=== PATIENT | female | born 1960 | race Caucasian/White ===

== ENCOUNTER 2020-04-01 10:05 | Outpatient (CLI) | payer OTHER, SELFPAY ==
--- NOTE | ~2020-04-01 | XR_ITS ---
EXAMINATION: XR knee LT 3V DATE: 04/01/2020 10:29 INDICATION: Left knee pain. TECHNIQUE: 3 views of left knee were obtained. COMPARISON: None. FINDINGS: Bone alignment is normal. No fracture. There is mild tricompartmental osteoarthritis. There is a small knee joint effusion. IMPRESSION: 1. Mild left knee osteoarthritis. 2. Small left knee joint effusion. Reviewed, dictated and finalized at location A. [employer]
== END 2020-04-01 10:06 | disposition home or self-care (01) ==
PROVIDERS: PCP Family Medicine; Visit Provider Nurse Practitioner Family
DX: M25.562 Pain in left knee (principal); M17.12 Unilateral primary osteoarthritis, left knee; M25.462 Effusion, left knee
CPT/HCPCS: 73562

== ENCOUNTER → 2020-11-01 12:39 | Outpatient (CLI) | payer OTHER, SELFPAY ==
--- NOTE | ~2020-11-01 | MM_ITS ---
EXAMINATION: MM screening nils BI w jacqueline HISTORY: Screening TECHNIQUE: Craniocaudal and mediolateral oblique 3-D tomosynthesis images were obtained and synthetic 2-D images were generated. CAD analysis was submitted and interpreted. COMPARISON: No prior mammogram is available for comparison at this institution. BREAST PARENCHYMAL COMPOSITION: There are scattered areas of fibroglandular density. FINDINGS: There is a mass in the upper outer quadrant of the right breast, middle third. There are no suspicious masses, calcifications or architectural distortion in the left breast to suggest malignan cy. IMPRESSION: 1. Right breast mass, upper outer quadrant. 2. Additional mammographic views and possible breast ultrasound are recommended. BI-RADS Category 0: Incomplete: Needs additional imaging evaluation. Reviewed, dictated and finalized at location A. IMPRESSION: 1. Right breast mass, upper outer quadrant. 2. Additional mammographic views and possible breast ultrasound are recommended . BI-RADS Category 0: Incomplete: Needs additional imaging evaluation.
== END ==
PROVIDERS: Visit Provider Obstetrics & Gynecology
DX: Z12.31 Encounter for screening mammogram for malignant neoplasm of breast (principal); R92.8 Other abnormal and inconclusive findings on diagnostic imaging of breast
CPT/HCPCS: 77063; 77067

== ENCOUNTER 2020-11-22 12:43 | Outpatient (CLI) | payer OTHER, SELFPAY ==
--- NOTE | ~2020-11-22 | MMUS_ITS ---
EXAMINATION: MM diagnostic nils RT w jacqueline, US breast RT limited HISTORY: Follow-up right breast mass TECHNIQUE: Additional 3-D tomosynthesis images of the right breast were performed and synthetic 2-D i mages were generated. CAD analysis was submitted and interpreted. High resolution Limited right breas t ultrasound was performed. COMPARISON: 11/01/2020 BREAST PARENCHYMAL COMPOSITION: Breast composed of scattered areas of fibroglandular density. FINDINGS: MAMMOGRAPHIC FINDINGS: There is a persistent mass in the mid lateral aspect of the right breast with central lucency on spot views. No suspicious calcifications or architectural distortion. ULTRASOUND: Limited right breast ultrasound: At 9:00, 4 cm from the nipple, there is a 4 mm cyst corresponding to the mammographic finding. No suspicious masses to suggest malignancy. IMPRESSION: 1. No evidence for malignancy in the right breast. Benign cyst. 2. Routine yearly screening mammogram and regular clinical breast examination are recommended. BI-RADS Category 2: Benign finding(s). Reviewed, dictated and finalized at location A. IMPRESSION: 1. No evidence for malignancy in the right breast. Benign cyst. 2. Routine yearly screening mammogram and regular clinical breast examination a re recommended. BI-RADS Category 2: Benign finding(s).
== END 2020-11-22 12:44 | disposition home or self-care (01) ==
LOC: ANHIMG 12:46
PROVIDERS: PCP Family Medicine; Visit Provider Obstetrics & Gynecology
DX: N60.01 Solitary cyst of right breast (principal)
CPT/HCPCS: 76642; 77061; 77065; G0279

== ENCOUNTER → 2021-12-22 10:35 | Outpatient (CLI) | payer OTHER, SELFPAY ==
--- NOTE | ~2021-12-22 | MM_ITS ---
EXAMINATION: MM screening nils BI w jacqueline HISTORY: Screening TECHNIQUE: Craniocaudal and mediolateral oblique 3-D tomosynthesis images were obtained and synthetic 2-D images were generated. CAD analysis was submitted and interpreted. COMPARISON: Comparison to multiple prior studies sequentially, with oldest reviewed study dated 03/22. BREAST PARENCHYMAL COMPOSITION: The breasts are almost entirely fatty. FINDINGS: There is no evidence of suspicious mass, calcification, or architectural distortion to sugg est malignancy in either breast. There has been no suspicious interval change. IMPRESSION: 1. No mammographic evidence of malignancy. 2. Recommend routine screening mammography in one year. BI-RADS Category 1: Negative Reviewed, dictated and finalized at location A.
== END ==
PROVIDERS: PCP Family Medicine; Visit Provider Obstetrics & Gynecology
DX: Z12.31 Encounter for screening mammogram for malignant neoplasm of breast (principal)
CPT/HCPCS: 77063; 77067

== ENCOUNTER → 2022-03-02 12:03 | Outpatient (CLI) | payer OTHER, SELFPAY ==
--- NOTE | ~2022-03-02 | DEXA_ITS ---
Bone Density Report Name: ALISON WORKMAN Age: 61 Sex: Female Ethnicity: White Date of : 1960 Indication: postmenopausal; screening for osteoporosis; Referring Provider: MARKO FRANKLIN Study: Bone densitometry was performed. Exam Date: March 02, 2022 Accession number: [id number] Bone Density: Region BMD T-score Z-score Classification AP Spine (L1-L4) 1.392 3.1 4.7 Normal Femoral Neck (Left) 0.831 -0.2 1.2 Normal Total Hip (Left) 1.114 1.4 2.4 Normal Femoral Neck (Right) 0.727 -1.1 0.3 Osteopenia Total Hip (Right) 1.047 0.9 1.9 Normal Total Hip Mean 1.081 1.2 2.2 Normal World Health Organization criteria for BMD impression classify patients as: Normal (T-score at or above -1.0), Osteopenia (T-score between -1.0 and -2.5), or Osteoporosis (T-score at or below -2.5). 10-year Fracture Risk(1): Major Osteoporotic Fracture 6.9% Hip Fracture 0.4% Reported Risk Factors: [place] (), Neck BMD=0.727, BMI=36.8 (1) FRAX(R) Version 3.08. Fracture probability calculated for an untreated patient. Fracture probability may be lower if the patient has received treatment. Clinical Information Provided by Patient: Patient maximum height was 67 Menopause Age: 42 Drinks caffeinated beverages Onset of menses at age 12 Number of children 2 Impression: The patient has low bone mass, based on the Right Femoral Neck T-score. The patient has an estimated ten-year risk of hip fracture of 0.4% and an estimated ten-year risk of major fracture of 6.9%, based on the WHO FRAX algorithm. Discussion: BONE DENSITY IS LOW AT ONE OR MORE SKELETAL SITES. This patient's lowest T-score is low at one or more skeletal sites. It meets the World Health Organization's (WHO) criteria for ?low bone mass? (T-score between -1.0 and -2.5). The patient's 10-year risk of fracture as calculated by FRAX is less than the threshold where pharmacological therapy is recommended by the National Osteoporosis Foundation (NOF). However, all treatment decisions require clinical judgment and consideration of individual patient factors, including patient preferences, comorbidities, previous drug use, risk factors not captured in the FRAX model (e.g., frailty, falls, vitamin D deficiency, increased bone turnover, interval significant decline in bone density) and possible under or overestimation of fracture risk by FRAX. The patient should follow a healthful lifestyle (good nutrition with adequate calcium and vitamin D, and appropriate weight-bearing exercise). Follow-Up: Consider repeating this study in 2 to 3 years to reassess this patient's status, or sooner if there is some new clinical indication. Reported by: CATE on 03/02/2022 12:33:00 PM. Reviewed, dictated and finalized
== END ==
PROVIDERS: PCP Family Medicine; Visit Provider Obstetrics & Gynecology
DX: Z78.0 Asymptomatic menopausal state (principal); M85.851 Other specified disorders of bone density and structure, right thigh
CPT/HCPCS: 77080

== ENCOUNTER 2022-12-01 00:33 | Day surgery (SDC) | payer OTHER, SELFPAY ==
[2022-11-27 09:17] VITALS: BMI 36.1
--- NOTE | 2022-11-27 09:27 | PC.NURSE ---
Report to the Outpatient Waiting Room, entrance under the green pavilion located off [facility], at time _0900_ on date _[id number]_. Planned Procedure Time: _1100_. Time changes happen often and if your time is changed the preop area will call you the afternoon before. - You and your visitor will be asked to self-screen and do not enter if you have any COVID symptoms. - A mask is optional within the hospital at this time. Patients may have clear liquids (water, carbonated beverages, clear teas, apple juice) until 3 hours prior to surgery with a maximum of 20 ounces. - No food from midnight until time of surgery Take the following medications with a SIP of water the morning of surgery: ___None DO NOT STOP ANY OF YOUR OTHER PRESCRIPTION MEDICATIONS PRIOR TO SURGERY ?EXCEPT THE FOLLOWING Medications to discontinue per physician All vitamins and supplements. Date to take last [id number] Please no make-up, nail macedonian, hairspray, perfume, deodorant, or body powder the day of surgery. No jewelry (including any body piercings) or valuables the day of surgery, leave them at home. Please take a shower or bath the night before, or the morning of, surgery with an antibacterial soap. Wear comfortable, loose fitting clothing. - Jewelry must be removed prior to entering the operating room. Rings and piercings that are not removed may be cut off. - The hospital will not accept responsibility for valuables. - Please leave all valuables, including medications, at home the day of surgery. If you are going home after surgery, a licensed intermodal truck driver must drive you home. - NO public transportation without another adult if you receive anesthesia. - We recommend that an adult stay with you for 24 hours following discharge. - We also recommend that you do not drive, make important decision, drink alcoholic beverages, or take any drugs that were not prescribed by your health care provider for at least 24 hours after your discharge time. Follow any additional instructions given to you from your surgeon. If you or anyone in your household have experienced Covid symptoms in the past week, please notify your surgeon or the nurse liaison at the phone number below for possible testing. Telephone instructions given to __Patient___and asked if any additional questions and then verbalized understanding. Patient advised to call surgeon office or pre surgery nurse liaison [phone] if any additional questions.
[2022-12-01] VITALS (12 sets, daily range): BP systolic 145–174; BP diastolic 75–90; PULSE 75–101; RESP 11–17; TEMP 36.1–36.4; O2SAT 95–99
--- NOTE | ~2022-12-01 | XR_ITS ---
XR surgery orthopedic 12/01/2022 10:36 Indication: Orthopedic surgery TECHNIQUE: Fluoroscopy used during Orthopedic surgery performed by [Kee Payan JR MD] on 12/01/2022. 4 seconds of fluoroscopy time with 1 fluoroscopic images captured. FINDINGS: Correlate with procedure note. IMPRESSION: Fluoroscopy used during orthopedic surgery. Please refer to procedural report. Reviewed, dictated and finalized at location B. IMPRESSION: Fluoroscopy used during orthopedic surgery. Please refer to procedu ral report.
--- NOTE | 2022-12-01 07:16 | WPDHPUPDATE1 ---
History and Physical Update Update Date/Time: 12/01/22 07:16 History and Physical has been reviewed, including an updated exam of the patient. There are NO changes in the patient's condition. Risks, benefits, and alternatives have been discussed and questions answered. Patient agrees to proceed with procedure.
--- NOTE | 2022-12-01 08:00 | WPDANESEPPF ---
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 Patient Data Age: 62 Gender: F Height: 1.7 m Weight: 104.5 kg Allergies Allergy/AdvReac Type Severity Reaction Status Date / Time povidone-iodine Allergy Severe Swelling Verified 11/27/22 09:13 [From Betadine] Home Medications Medication Instructions Recorded Confirmed Type tumeric 2 tab-cap PO DAILY 11/01/20 12/01/22 History vit 1 tablet PO DAILY 11/01/20 12/01/22 History I-cmhxnkq-[id number]-rutin-[id number] 500 mg-50 mg-25 mg-40 mg tablet (Bioflex) ketoconazole 2 % shampoo 1 applic topical 2XW #120 mL 08/08/22 11/27/22 Rx calcium 600 mg capsule 600 mg PO DAILY 11/27/22 12/01/22 History Patient hx anesthesia problems: none Family hx anesthesia problems: none Results Review: All pre-operative results and documents have been reviewed as part of the pre-operative evaluation. [facility] Past Medical History Medical History Arthritis knee HLD (hyperlipidemia) IFG (impaired fasting glucose) Surgical History Surgical History History of elective section x2 Social History Social History Smoking packs per day: 0.5 Smoking cigarettes per day: 10.0 Years smoked: 1 Smoking pack-years: 0.50 Smoking status: Former smoker Tobacco type: cigarettes Smoking end date: 11/27/16 Alcohol intake: current Alcohol use details: social drinker Substance use: never Living arrangements: with family Occupation/Education: retired Gender identity (if verbalized by the patient): Female Spiritual care concerns: No Anes - Eval Final PreProcedure Day of Procedure 12/01/22 08:00 Patient weight: obese Lungs: clear to auscultation Airway: Mallampati scale class II Neurological: alert and oriented Last oral intake: >/= 8 hours ASA classification: III Emergent: no Anesthetic plan: proceed Anesthesia type and monitoring: general ETT and standard monitoring Results Review: All pre-operative results and documents have been reviewed as part of the pre-operative evaluation. Informed Consent: The patient's anesthetic plan and its attendant risks and benefits were discussed with the patient/family/POA. Questions were solicited and answers provided to the satisfaction of the patient/family/POA.
[2022-12-01] MEDS: LACTATED RINGERS 1,000 ML 30 ML IV CONT ×2 (08:12→10:53)
[2022-12-01] MEDS: ceFAZolin 2 GM/D5W 50 ML 2 GM/50 ML BAG IVPB (09:15)
[2022-12-01] MEDS: LIDOCAINE HCL 2% PF INJ 5 ML VIAL 20 ML INFILTRATE (09:51)
--- NOTE | 2022-12-01 10:39 | W.PM.PROC2 ---
Procedure Note - Detailed Date of Procedure 12/01/22 Pre-op Diagnosis Retrocalcaneal exostosis left foot Post-op Diagnosis Same Procedure Performed Retrocalcaneal exostectomy left foot Surgeon Kee Payan JR, JUDITHM Anesthesia General and Local Indications Pain to the back of the left foot Description of Procedure Under mild sedation, the patient was brought to the operating room, placed on the operating table in the prone position. A pneumatic thigh tourniquet was placed about the patient's left thigh. Following general anesthesia I performed a local anesthetic nerve block with 20cc's of 2% Lidocaine plain and 0.5% Marcaine plain along the common peroneal and sural nerve block. The right foot and distal leg was then scrubbed, prepped, and draped in the usual aseptic manner. An Esmarch bandage was then used to examine the patient's left foot and pneumatic thigh tourniquet was then inflated. Surgery began in the following manner. Attention was directed to the posterior aspect of leg leg where a curvilinear J shaped incision was made lateral to the retrocalcaneal exostosis which was palpable. The incision was made starting 6cm above the insertion of the Achilles and extending 3cm inferior and medial to the calcaneus. The incision was continued deep down through the subcutaneous tissues using sharp and blunt dissection. All bleeders were cauterized as necessary. At this point dissection was continued exposing the the insertional component of the Achilles Tendon. There was noted hypertrophy to the distal tendon. A midsubstance linear Achilles tendon incision was made exposing a large intrasubstance calcified region of bone which was carefully excised and passed to the back table. There was a large posterior and superior exostosis noted which was resected with an osteotome and mallet and feathered smooth with a sagittal saw blade. All rough edges were smoothed with a power nemo and bone rasp. The area was flushed with copious amounts of sterile saline. Fluoroscopy was used to make sure that enough of the retrocalcaneal region was resected approximately 3m from superior to inferior and medial to lateral and 2cm from posterior to anterior. Next, utilizing standard principle and techniques the [employer] SpeedBridge 2.0 system was used to reattach the debulked Achilles tendon to the posterior calcaneus. Comparable tension to the contralateral foot was maintained. Adequate stable reattachment was noted. I flushed the wound site with copious amounts of sterile saline. Next, the paratenon and overlying subcutaneous tissue was reapproximated with 4-0 Vicryl and 4-0 Vicryl correspondingly. Next, the skin was reapproximated and coapted with 4-0 Monocryl in running subcuticular suture fashion technique. Upon completion of the procedure, the incision was dressed with Adaptic, 4 x 4's, Kerlix, and Hollis Wrap. The pneumatic thigh tourniquet was then deflated and a prompt hyperemic response noted to all digits of the left foot. A posterior splint was then applied. The patient did very well with the procedure and the anesthesia. She was transferred to the recovery room with vital signs stable and vascular status intact to all toes of the left foot. Following a period of postoperative monitoring, the patient will be discharged home on the following written and oral postoperative instructions: 1. Keep the dressing clean, dry, and intact. Use a cast protector bag with showers. 2. The patient to be strictly nonweightbearing with a knee scooter. 3. The patient should ice and elevate the left foot when at rest. 4. The patient to contact Dr. Payan for all postop care and if any problems arise. 5. Prescriptions were written for Percocet 5/325 dispensed 40 to be taken 1 p.o. q.4 to 6 hours as needed for severe pain. Implants [employer] SpeedBridge 2.0 system Estimated Blood Loss 1 Drains No Packing No Pathology None sent Complications No immediate complic
[2022-12-01] MEDS: fentaNYL CITRATE INJ (*CRX) 100 MCG/2 ML VIAL 25 MCG IV PUSH ×5 (11:00→11:45)
[2022-12-01] MEDS: ONDANSETRON INJ 4 MG/2 ML VIAL IV PUSH (11:30)
[2022-12-01] MEDS: SCOPOLAMINE 1.5 MG PATCH TRANSDERM (12:11)
== END 2022-12-01 14:10 | disposition home or self-care (01) ==
PROVIDERS: PCP Family Medicine; Visit Provider Podiatrist Foot & Ankle Surgery
PROC: (CPT 28119; principal; 2022-12-01 09:30)
DX: M77.32 Calcaneal spur, left foot (principal); M76.62 Achilles tendinitis, left leg; M67.874 Other specified disorders of tendon, left ankle and foot; E78.5 Hyperlipidemia, unspecified; Z87.891 Personal history of nicotine dependence; E66.9 Obesity, unspecified; Z68.38 Body mass index [BMI] 38.0-38.9, adult
CPT/HCPCS: 28119; 99199; A9270; J0690; J1100; J1170; J2250; J2405; J2704; J3010; J7120

== ENCOUNTER → 2023-03-21 10:29 | Outpatient (CLI) | payer OTHER, SELFPAY ==
--- NOTE | ~2023-03-21 | MM_ITS ---
EXAMINATION: MM screening nils BI w jacqueline HISTORY: Screening TECHNIQUE: Craniocaudal and mediolateral oblique 3-D tomosynthesis images were obtained and synthetic 2-D images were generated. CAD analysis was submitted and interpreted. COMPARISON: Comparison to multiple prior studies sequentially, with oldest reviewed study dated 03/22. BREAST PARENCHYMAL COMPOSITION: There are scattered areas of fibroglandular density. FINDINGS: There is no evidence of suspicious mass, calcification, or architectural distortion to sugg est malignancy in either breast. There has been no suspicious interval change. IMPRESSION: 1. No mammographic evidence of malignancy. 2. Recommend routine screening mammography in one year. BI-RADS Category 1: Negative Reviewed, dictated and finalized at location A. [employer]
== END ==
PROVIDERS: PCP Family Medicine; Visit Provider Registered Nurse
DX: Z12.31 Encounter for screening mammogram for malignant neoplasm of breast (principal)
CPT/HCPCS: 77063; 77067

== ENCOUNTER 2023-12-19 01:26 | Day surgery (SDC) | payer OTHER, SELFPAY ==
[2023-11-28 15:51] VITALS: BMI 36.2
[2023-12-19 06:46] VITALS: BP 145/92; PULSE 85; RESP 18; TEMP 36.6; O2SAT 99; BMI 37.0
[2023-12-19] MEDS: LACTATED RINGERS 1,000 ML 150 ML IV CONT (07:12)
--- NOTE | 2023-12-19 07:56 | WPDANESEPPF ---
Anes - Initial Pre Proc Eval Procedure: Operation Date: 12/19/23 08:00 Proposed Procedures p Colonoscopy - Ron Denson MD Date/Time: 12/19/23 07:56 Surgeon: Ron Denson MD Pre Op Diagnosis: hx of colon polyps Patient Data Age: 63 Gender: F Height: 1.7 m Weight: 107.2 kg Last Vital Signs Temp 98 F 12/19/23 06:46 Pulse 85 12/19/23 06:46 Resp 18 12/19/23 06:46 BP 145/92 H 12/19/23 06:46 Pulse Ox 99 12/19/23 06:46 O2 Del Method Room Air 12/19/23 06:46 Allergies Allergy/AdvReac Type Severity Reaction Status Date / Time povidone-iodine Allergy Severe Swelling Verified 12/19/23 06:45 [From Betadine] Home Medications Medication Instructions Recorded Confirmed Type tumeric 2 tab-cap PO DAILY 11/01/20 12/19/23 History vit 1 tablet PO DAILY 11/01/20 12/19/23 History B-pthxsvr-yolaiybos-[id number] 500 mg-50 mg-25 mg-40 mg tablet (Bioflex) calcium 600 mg capsule 600 mg PO DAILY 11/27/22 12/19/23 History Patient hx anesthesia problems: none Family hx anesthesia problems: none Results Review: All pre-operative results and documents have been reviewed as part of the pre-operative evaluation. [facility] Past Medical History Medical History Arthritis knee HLD (hyperlipidemia) IFG (impaired fasting glucose) Surgical History Surgical History History of Achilles tendon repair History of elective section x2 Social History Social History Smoking packs per day: 0.5 Smoking cigarettes per day: 10.0 Years smoked: 1 Smoking pack-years: 0.50 Smoking status: Former smoker Tobacco type: cigarettes Smoking end date: 11/27/16 Alcohol intake: current Alcohol use details: social drinker Substance use: never Substance use type: does not use Lack of Transportation: No Lack of Food: Never True Current Housing: I Have Housing Concerned About Future Housing: No Difficulty Paying Gas/Electric Bills: No Difficulty Paying for Meds: No Currently Unemployed: No Education: High School Diploma/GED Difficulty w/ Childcare or Family Care: No Living arrangements: with family Occupation/Education: retired Gender identity (if verbalized by the patient): Female Spiritual care concerns: No Anes - Eval Final PreProcedure Day of Procedure 12/19/23 07:56 Patient weight: obese Heart: regular rate and rhythm Lungs: clear to auscultation Airway: Mallampati scale class II Neurological: alert and oriented Last oral intake: >/= 8 hours ASA classification: II Emergent: no Anesthetic plan: proceed Anesthesia type and monitoring: general GIVS and standard monitoring Results Review: All pre-operative results and documents have been reviewed as part of the pre-operative evaluation. Informed Consent: The patient's anesthetic plan and its attendant risks and benefits were discussed with the patient/family/POA. Questions were solicited and answers provided to the satisfaction of the patient/family/POA.
--- NOTE | 2023-12-19 08:07 | PM.IMHP ---
H&P: HPI History of Present Illness Date/Time: 12/19/23 08:07 Chief Complaint: History of colonic polyps. Narrative: The patient is here for her surveillance colonoscopy. Review of Systems Review of Systems: All systems reviewed & are unremarkable except as noted in HPI and below PMFSH Past Medical History Medical History Arthritis knee HLD (hyperlipidemia) IFG (impaired fasting glucose) Surgical History Surgical History History of Achilles tendon repair History of elective section x2 Social History Social History Smoking packs per day: 0.5 Smoking cigarettes per day: 10.0 Years smoked: 1 Smoking pack-years: 0.50 Smoking status: Former smoker Tobacco type: cigarettes Smoking end date: 11/27/16 Alcohol intake: current Alcohol use details: social drinker Substance use: never Substance use type: does not use Lack of Transportation: No Lack of Food: Never True Current Housing: I Have Housing Concerned About Future Housing: No Difficulty Paying Gas/Electric Bills: No Difficulty Paying for Meds: No Currently Unemployed: No Education: High School Diploma/GED Difficulty w/ Childcare or Family Care: No Living arrangements: with family Occupation/Education: retired Gender identity (if verbalized by the patient): Female Spiritual care concerns: No Meds Home Medications and Allergies Home Medications Medication Instructions Recorded Confirmed Type tumeric 2 tab-cap PO DAILY 11/01/20 12/19/23 History vit 1 tablet PO DAILY 11/01/20 12/19/23 History I-nfopdtl-gvngtrvrb-rutin-[id number] 500 mg-50 mg-25 mg-40 mg tablet (Bioflex) calcium 600 mg capsule 600 mg PO DAILY 11/27/22 12/19/23 History Allergies Allergy/AdvReac Type Severity Reaction Status Date / Time povidone-iodine Allergy Severe Swelling Verified 12/19/23 06:45 [From Betadine] Vital Signs Vital Signs - 24 hr 12/19/23 06:46 Temperature 98 F Pulse Rate 85 Respiratory Rate 18 Blood Pressure 145/92 H Pulse Oximetry 99 Oxygen Delivery Room Air Assessment and Plan Assessment and plan (1) History of colonic polyps: Code(s): Z86.0100 - Personal history of colon polyps, unspecified Status: Acute Assessment and Plan: Patient deemed a good candidate for colonoscopy. Will proceed.
[2023-12-19 08:30] VITALS: BP 120/92; PULSE 71; RESP 18; O2SAT 99
--- NOTE | 2023-12-19 08:30 | P.HP_ITS ---
H&P: HPI History of Present Illness Date/Time: 12/19/23 08:30 Chief Complaint: routine [facility] Past Medical History Medical History Arthritis knee HLD (hyperlipidemia) IFG (impaired fasting glucose) Surgical History Surgical History History of Achilles tendon repair History of elective section x2 Social History Social History Smoking packs per day: 0.5 Smoking cigarettes per day: 10.0 Years smoked: 1 Smoking pack-years: 0.50 Smoking status: Former smoker Tobacco type: cigarettes Smoking end date: 11/27/16 Alcohol intake: current Alcohol use details: social drinker Substance use: never Substance use type: does not use Lack of Transportation: No Lack of Food: Never True Current Housing: I Have Housing Concerned About Future Housing: No Difficulty Paying Gas/Electric Bills: No Difficulty Paying for Meds: No Currently Unemployed: No Education: High School Diploma/GED Difficulty w/ Childcare or Family Care: No Living arrangements: with family Occupation/Education: retired Gender identity (if verbalized by the patient): Female Spiritual care concerns: No Meds Home Medications and Allergies Home Medications Medication Instructions Recorded Confirmed Type tumeric 2 tab-cap PO DAILY 11/01/20 12/19/23 History vit 1 tablet PO DAILY 11/01/20 12/19/23 History [id number] 500 mg-50 mg-25 mg-40 mg tablet (Bioflex) calcium 600 mg capsule 600 mg PO DAILY 11/27/22 12/19/23 History Allergies Allergy/AdvReac Type Severity Reaction Status Date / Time povidone-iodine Allergy Severe Swelling Verified 12/19/23 06:45 [From Betadine] Vital Signs Vital Signs - 24 hr 12/19/23 06:46 Temperature 98 F Pulse Rate 85 Respiratory Rate 18 Blood Pressure 145/92 H Pulse Oximetry 99 Oxygen Delivery Room Air
[2023-12-19 08:40] VITALS: BP 140/81; PULSE 77; RESP 15; O2SAT 99
[2023-12-19 08:50] VITALS: BP 150/84; PULSE 73; RESP 21; O2SAT 99
== END 2023-12-19 08:57 | disposition home or self-care (01) ==
PROVIDERS: PCP Family Medicine; Referring Provider Physician Assistant; Visit Provider Internal Medicine Gastroenterology
PROC: 0DJD8ZZ Inspection of Lower Intestinal Tract, Via Natural or Artificial Opening Endoscopic (ICD-10-PCS; CPT 45378; principal; 2023-12-19 08:00)
DX: Z12.11 Encounter for screening for malignant neoplasm of colon (principal); E78.5 Hyperlipidemia, unspecified; E66.9 Obesity, unspecified; Z68.37 Body mass index [BMI] 37.0-37.9, adult; Z98.890 Other specified postprocedural states; Z87.891 Personal history of nicotine dependence; Z86.0100 Personal history of colon polyps, unspecified
CPT/HCPCS: 45378; J2003; J2704; J7120

== ENCOUNTER 2024-04-08 14:32 | Outpatient (CLI) | payer OTHER, SELFPAY ==
--- NOTE | ~2024-04-08 | MM_ITS ---
EXAMINATION: MM screening nils BI w jacqueline HISTORY: Screening TECHNIQUE: Craniocaudal and mediolateral oblique 3-D tomosynthesis images were obtained and synthetic 2-D images were generated. CAD analysis was submitted and interpreted. COMPARISON: Comparison to multiple prior studies sequentially, with oldest reviewed study dated 03/22. BREAST PARENCHYMAL COMPOSITION: Not dense: There are scattered areas of fibroglandular density. FINDINGS: There is no evidence of suspicious mass, calcification, or architectural distortion to sugg est malignancy in either breast. There has been no suspicious interval change. IMPRESSION: 1. No mammographic evidence of malignancy. 2. Recommend routine screening mammography in one year. BI-RADS Category 1: Negative Reviewed, dictated and finalized at location B. ETARY RECEPTIONIST
== END 2024-04-08 14:33 | disposition home or self-care (01) ==
LOC: MICIMG 14:33
PROVIDERS: PCP Family Medicine; Visit Provider Family Medicine
DX: Z12.31 Encounter for screening mammogram for malignant neoplasm of breast (principal)
CPT/HCPCS: 77063; 77067

== ENCOUNTER 2024-11-14 09:57 | Outpatient (CLI) | payer OTHER, SELFPAY ==
[2024-11-14 10:53] LABS: Hematocrit 41.6 % (37.0-47.0); Hemoglobin 13.7 g/dL (12.0-15.0); Mean Corpuscular HGB Conc 32.9 g/dl (32-36); Mean Corpuscular Hemoglobin 30.4 pg (26-34); Mean Corpuscular Volume 92.2 fl (80-100); Platelet Count Result 248 k/mm3 (150-375); Red Blood Count 4.51 M/mm3 (4.2-5.4); White Blood Count 4.7 K/mm3 (4.5-10.0)
[2024-11-14 11:06] LABS: Hemoglobin A1C 6.0 % (<5.7)
[2024-11-14 11:13] LABS: Alanine Aminotransferase 16 U/L (6-35); Albumin Level 4.5 g/dL (3.5-5.1); Alkaline Phosphatase 103 U/L (38-126); Anion Gap 9 mmol/L (4-12); Aspartate Amino Transferase 32 U/L (14-36); Bilirubin,Total 0.6 mg/dL (0.2-1.3); Blood Urea Nitrogen 15 mg/dL (7-17); Calcium 9.6 mg/dL (8.4-10.2); Carbon Dioxide 26 mmol/L (22-30); Chloride 103 mmol/L (98-107); Cholesterol 244 mg/dL (0-200); Estimated Glomerular Filt Rate > 60; Glucose 99 mg/dL (65-110); HDL Direct 65 mg/dL; Potassium 4.0 mmol/L (3.4-5.0); Sodium 138 mmol/L (137-145); Total Protein 7.8 g/dL (6.3-8.2); Triglycerides 72 mg/dL (<150)
[2024-11-14 11:16] LABS: Strep Group A RT-PCR NOT DETECTED (Negative)
[2024-11-14 11:48] LABS: Thyroid Stimulating Hormone 1.220 uIU/mL (0.465-4.680)
[2024-11-14 17:30] LABS: Negative Monotest Control Negative (Negative); Positive Monotest Control Positive (Positive)
== END 2024-11-14 09:58 | disposition home or self-care (01) ==
LOC: ANHLAB 09:58
PROVIDERS: PCP Family Medicine; Visit Provider Physician Assistant Medical
DX: E78.5 Hyperlipidemia, unspecified (principal); R03.0 Elevated blood-pressure reading, without diagnosis of hypertension; R73.01 Impaired fasting glucose; R53.83 Other fatigue; R51.9 Headache, unspecified; J06.9 Acute upper respiratory infection, unspecified; J02.9 Acute pharyngitis, unspecified; R59.1 Generalized enlarged lymph nodes
CPT/HCPCS: 36415; 80053; 80061; 83036; 84443; 85027; 86308; 87651

== ENCOUNTER 2024-11-27 10:48 | Outpatient (CLI) | payer OTHER, SELFPAY ==
--- NOTE | ~2024-11-27 | DEXA_ITS ---
Bone Density Report Name: ALISON WORKMNA Age: 64 Sex: Female Ethnicity: White Date of : 1960 Indication: postmenopausal; screening for osteoporosis; Referring Provider: MATT TORRES Study: Bone densitometry was performed. Exam Date: November 27, 2024 Accession number: [id number] Bone Density: Region BMD T-score Z-score Classification AP Spine(L1-L4) 1.413 3.3 5.0 Normal Femoral Neck (Left) 0.841 -0.1 1.4 Normal Total Hip (Left) 1.135 1.6 2.8 Normal Femoral Neck (Right) 0.694 -1.4 0.1 Osteopenia Total Hip (Right) 1.011 0.6 1.8 Normal Total Hip Mean 1.073 1.1 2.3 Normal World Health Organization criteria for BMD impression classify patients as: Normal (T-score at or above -1.0), Osteopenia (T-score between -1.0 and -2.5), or Osteoporosis (T-score at or below -2.5). 10-year Fracture Risk(1): Major Osteoporotic Fracture 7.8% Hip Fracture 0.7% Reported Risk Factors: [place] (), Neck BMD=0.694, BMI=37.3 (1) FRAX(R) Version 3.08. Fracture probability calculated for an untreated patient. Fracture probability may be lower if the patient has received treatment. Previous Exams: -- Region Exam Age BMD T-score BMD Change BMD Change Date g/cm2 vs Baseline vs Previous -- AP Spine (L1-L4) 11/27/2024 64 1.413 3.3 1.5%# 1.5%# 03/02/2022 61 1.392 3.1 Total Hip(Left) 11/27/2024 64 1.135 1.6 1.9%# 1.9%# 03/02/2022 61 1.114 1.4 Total Hip(Right) 11/27/2024 64 1.011 0.6 -3.5%# -3.5%# 03/02/2022 61 1.047 0.9 -- *Denotes significance at 95% confidence level, LSC for AP Spine = 0.022 g/cm2, LSC for Total Hip = 0.027 g/cm2 # Denotes dissimilar scan types or analysis methods Clinical Information Provided by Patient: Has used the following medications: Vitamin D, Calcium Patient maximum height was 68 Menopause Age: 42 Drinks caffeinated beverages Onset of menses at age 13 Number of children 2 Impression: The patient has low bone mass, based on the Right Femoral Neck T-score. The patient has an estimated ten-year risk of hip fracture of 0.7% and an estimated ten-year risk of major fracture of 7.8%, based on the WHO FRAX algorithm. Unable to evaluate interval change due to the use of different scan modes. Discussion: BONE DENSITY IS LOW AT ONE OR MORE SKELETAL SITES. This patient's lowest T-score is low at one or more skeletal sites. It meets the World Health Organization's (WHO) criteria for ?low bone mass? (T-score between -1.0 and -2.5). The patient's 10-year risk of fracture as calculated by FRAX is less than the threshold where pharmacological therapy is recommended by the National Osteoporosis Foundation (NOF). However, all treatment decisions require clinical judgment and consideration of individual patient factors, including patient preferences, comorbidities, previous drug use, risk factors not captured in the FRAX model (e.g., frailty, falls, vitamin D deficiency, increased bone turnover, interval significant decline in bone density) and possible under or overestimation of fracture risk by FRAX. The patient should follow a healthful lifestyle (good nutrition with adequate calcium and vitamin D, and appropriate weight-bearing exercise). Follow-Up: Consider repeating this study in 2 to 3 years to reassess this patient's status, or sooner if there is some new clinical indication. Reported by: SYLVIE on 11/27/2024 11:21:00 AM. Reviewed, dictated and finalized at location A.
== END 2024-11-27 10:49 | disposition home or self-care (01) ==
LOC: MICIMG 10:49
PROVIDERS: PCP Family Medicine; Visit Provider Nurse Practitioner Family
DX: Z78.0 Asymptomatic menopausal state (principal); M85.851 Other specified disorders of bone density and structure, right thigh
CPT/HCPCS: 77080